=== PATIENT | male | born 1945 | race Caucasian/White ===

== ENCOUNTER 2017-04-10 18:13 | Inpatient (IN) | payer MEDICARE, OTHER ==
[~2017-04-10] VITALS: Ht 176.5 cm; Wt 71.7 kg
[2017-04-10 19:30] VITALS: BP 115/68
[2017-04-10] MEDS ORDERED: PAXIL20 MG PO (20:43)
[2017-04-10] MEDS ORDERED: ZOCOR40 MG PO (20:44)
[2017-04-10] MEDS ORDERED: ATIVAN1 MG PO (20:46)
[2017-04-10] MEDS ORDERED: GLUCOPHAGE500 MG PO (20:47)
[2017-04-10] MEDS ORDERED: BAYER CHEWABLE81 MG PO (20:48)
[2017-04-10] MEDS ORDERED: ATIVAN0.5 MG PO (20:49)
[2017-04-10] MEDS ORDERED: SINEMET 25-2501 EACH PO (20:51)
[2017-04-10] MEDS ORDERED: LUTEIN20 MG PO (20:52)
[2017-04-10] MEDS ORDERED: FLOMAX0.4 MG PO (20:52)
[2017-04-10] MEDS ORDERED: CETIRIZINE HCL5 M1 PO (20:54)
[2017-04-10] MEDS ORDERED: BENICAR HCT 40-1 TA1 PO (20:54)
[2017-04-10] MEDS ORDERED: OMEPRAZOLE40 MG PO (20:55)
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
[2017-04-11 03:51] VITALS: BP 115/68; BMI 23.0
[2017-04-11 07:08] LABS: BASOPHILS 0.3 % (0-2); EOSINOPHILS 2.2 % (0-7); HEMATOCRIT 39.9 % (42.0-54.0); HEMOGLOBIN 13.9 g/dL (13.5-17.5); IMMATURE GRANULOCYTES 0.2 % (0-5); LYMPHOCYTES 27.2 % (15-50); MCH 31.4 pg (26.0-34.0); MCHC 34.8 g/dL (31.0-37.0); MCV 90.1 fL (80.0-100.0); MEAN PLATELET VOLUME 8.6 fL (7.4-10.4); MONOCYTES 9.5 % (2-11); NEUTROPHILS 60.6 % (40-80); PLATELET COUNT 210 10x3/uL (130-400); RBC 4.43 10x6/uL (4.20-6.10); RDW 12.7 % (11.5-14.5); WBC 5.8 10x3/uL (4.8-10.8)
[2017-04-11 07:17] LABS: HEMOGLOBIN A1C 6.7 % (4.8-6.0)
[2017-04-11 07:38] LABS: ALBUMIN 4.2 g/dL (3.4-5.0); BILIRUBIN - TOTAL 1.27 mg/dL (0.2-1.3); CARBON DIOXIDE 27.4 mmol/L (21.0-32.0); CREATININE - SERUM 1.1 mg/dL (0.6-1.3); LDL-HDL RATIO 1.7 ratio (1.5-3.5); POTASSIUM - SERUM 3.4 mmol/L (3.5-5.1); PROTEIN - SERUM 7.5 g/dL (6.4-8.2); THYROID STIMULATING HORMONE 1.05 uIU/mL (0.36-3.74)
--- NOTE | 2017-04-11 12:48 | NUR ---
CONFUSED AND DISORIENTED.DIFFICULT TO REDIRECT.FREQUENTLY TRYING TO STAND UP,HAS DIFFICULTY WITH BALANCE.COMPLIANT WITH MEDS.WILL CONTINUE WITH PLAN OF CARE,MONITOR FOR SAFETY AND CHANGES.
--- NOTE | 2017-04-11 13:10 | NUR ---
PT WAS GIVEN 10MG OF GEODON FOR ANXIETY AND AGGITATION, CONSTANTLY GETTING UP OUT OF CHAIR AND TRYING TO WALK AROUND VERY UNSTEADY. WILL CONTINUE TO MONITOR.
[2017-04-11 16:04] VITALS: BP 151/69
--- NOTE | 2017-04-11 23:01 | NUR ---
RECEIVED IN HALLWAY. SITTING IN A RECLINING CHAIR. CONFUSED. ATTEMPTS TO STAND WITHOUT ASSIST. MARISSA ALARM SOUNDS. VISUAL HALLUCIANTIONS. CALM AND COOPERATIVE WITH CARE AND ASSESSMENTS. REDIRECT AND REORIENT NEEDED. RESTING IN RECLINER EYES CLOSED AT THIS TIME. CONTINUES TO HALLUCINATE. CONTINUE PLAN OF CARE
--- NOTE | 2017-04-12 00:29 | NUR ---
VERY CONFUSED. VISUAL AND AUDITORY HALLUCINATIONS. ATTEMPTS TO STAND WITHOUT ASSIST. GEODON 10 MG IM FOR INCREASING ANXIETY.
--- NOTE | 2017-04-12 03:06 | NUR ---
PATIENT IN HALLWAY LAYING IN RECLINING CHAIR. RESTLESS. HALLUCINATING. HAVING VISUAL AND AUDITORY HALLUCINATIONS. PRN ATIVAN 1 MG IM GIVEN FOR INCREASING ANXIETY.
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
--- NOTE | 2017-04-12 12:05 | NUR ---
CONFUSED AND DISORIENTED.KEEPS EYES CLOSED MOST OF THE TIME.COMPLIANT WITH MEDS.MEDS CRUSHED AND GIVEN IN APPLESAUCE.REQUIRES TOTAL CARE.WILL CONTINUE WITH PLAN OF CARE,MONITOR FOR CHANGES AND SAFETY.
[2017-04-12 19:09] VITALS: BP 126/81
[2017-04-12 20:30] VITALS: BP 95/53
--- NOTE | 2017-04-12 22:13 | NUR ---
RECEIVED IN HALLWAY. SITTING QUIETLY IN A RECLINING CHAIR. CALM AND COOPERATIVE WITH CARE AND ASSESSMENTS. NO SIGNS OF AGGRESSION. NO SIGNS OF HALLUCINATIONS. REDIRECT AND REORIENT NEEDED. CONTINUES TO SIT IN RECLINER IN HALLWAY. CONTINUE PLAN OF CARE
[2017-04-13 07:09] LABS: VITAMIN D 25 HYDROXY 35.3 ng/mL (30.0-100.0)
[2017-04-13 08:52] LABS: ALBUMIN 3.9 g/dL (3.4-5.0); ANION GAP 14.9 mmol/L (8-16); BILIRUBIN - TOTAL 1.2 mg/dL (0.2-1.3); CALCIUM 10.1 mg/dL (8.5-10.1); CREATININE - SERUM 1.8 mg/dL (0.6-1.3); POTASSIUM - SERUM 3.9 mmol/L (3.5-5.1); PROTEIN - SERUM 7.1 g/dL (6.4-8.2)
[2017-04-13 11:35] VITALS: BMI 23.0
[2017-04-13] MEDS ORDERED: GEODON20 MG PO (12:14)
[2017-04-13 14:43] VITALS: Ht 176.5 cm; Wt 71.7 kg
--- NOTE | 2017-04-13 15:00 | NUR ---
LYING IN RECLINER WITJ EYES CLOSED MOST OF DAY. CONFUSED AND DISORIENTED. KNOWS NAME ONLY. REFUSED AM MEDS, UNABLE TO AWAKEN FOR MEDS. CONTINUE PLAN OF CARE AND MONITOR FOR SAFETY AND CHANGES.
[2017-04-13 20:35] VITALS: BP 103/61
--- NOTE | 2017-04-13 21:08 | NUR ---
RECEIVED IN HALLWAY. SITTING QUIETLY IN A RECLINER. CALM AND COOPERATIVE WITH CARE AND ASSESSMENTS. NO SIGNS OF AGGRESSION. NO SIGNS OF HALLUCIANTIONS. REDIRECT AND REORIENT NEEDED. CONTINUES TO SIT QUIETLY IN CHAIR OUTSIDE OF NURSES STATION. CONTINUE PLAN OF CARE
--- NOTE | 2017-04-13 23:41 | NUR ---
IV START X 1 ATTEMPT LEFT FOREARM.
[2017-04-14 03:09] LABS: RAPID PLASMA REAGIN Non Reactive (Non Reactive)
[2017-04-14 04:13] LABS: FOLATE (FOLIC ACID) - SERUM 13.6 ng/mL (>3.0)
[2017-04-14 07:26] LABS: BASOPHILS 0.5 % (0-2); EOSINOPHILS 3.2 % (0-7); HEMATOCRIT 38.5 % (42.0-54.0); HEMOGLOBIN 13.2 g/dL (13.5-17.5); IMMATURE GRANULOCYTES 0.2 % (0-5); LYMPHOCYTES 34.1 % (15-50); MCH 31.4 pg (26.0-34.0); MCHC 34.3 g/dL (31.0-37.0); MCV 91.4 fL (80.0-100.0); MEAN PLATELET VOLUME 8.8 fL (7.4-10.4); MONOCYTES 9.2 % (2-11); NEUTROPHILS 52.8 % (40-80); PLATELET COUNT 210 10x3/uL (130-400); RBC 4.21 10x6/uL (4.20-6.10); RDW 13.4 % (11.5-14.5); WBC 5.9 10x3/uL (4.8-10.8)
[2017-04-14 07:39] LABS: ANION GAP 12.1 mmol/L (8-16); CARBON DIOXIDE 27.8 mmol/L (21.0-32.0); CREATININE - SERUM 1.4 mg/dL (0.6-1.3); POTASSIUM - SERUM 3.9 mmol/L (3.5-5.1)
--- NOTE | 2017-04-14 10:17 | PN ---
PATIENT:SHARRON OROSCO MEDICAL RECORD: [id number] LOCATION:[facility] ADMISSION DATE: 04/10/17 PROGRESS NOTE DATE OF SERVICE: 04/13/2017 SUBJECTIVE: No new complaint. OBJECTIVE: The patient has been somewhat restless, but not at all combative. He did sleep about 3 hours last night. At the request of the family, telephone conversation was held with one of the patient's treating physicians, Dr. Sha Hooks, a neurologist at [facility]. Dr. Hooks offered further information about the patient's diagnosis of Parkinson disease. PHYSICAL EXAMINATION: On exam, the patient's mood is euthymic. Affect is very constricted. Speech is minimal. Content of thought appears to be focused only on somatic concerns. Sensorium shows no improvement. ASSESSMENT: No change in diagnosis. PLAN: 1. Maintain current treatment plan. 2. Anticipate discharge soon if behavior remains under good control. TRANSINT:[id number] Voice Confirmation ID: [id number] DOCUMENT ID: [id number] VERENA WILKINSON III, MD at 1017 CC: [id number] DICTATION DATE: 04/13/17 1357 CONTROLLER REPAIRER AND TESTER: 04/13/17 1423 ADM IN [facility] [address] [place] [address]
[2017-04-14 10:32] VITALS: BP 129/61
[2017-04-14 20:22] VITALS: BP 140/67
[2017-04-15 06:50] LABS: BASOPHILS 0.4 % (0-2); EOSINOPHILS 2.4 % (0-7); HEMATOCRIT 35.8 % (42.0-54.0); HEMOGLOBIN 12.2 g/dL (13.5-17.5); IMMATURE GRANULOCYTES 0.2 % (0-5); LYMPHOCYTES 31.7 % (15-50); MCH 31.3 pg (26.0-34.0); MCHC 34.1 g/dL (31.0-37.0); MCV 91.8 fL (80.0-100.0); MEAN PLATELET VOLUME 8.5 fL (7.4-10.4); MONOCYTES 8.9 % (2-11); NEUTROPHILS 56.4 % (40-80); PLATELET COUNT 201 10x3/uL (130-400); RDW 13.4 % (11.5-14.5); WBC 5.4 10x3/uL (4.8-10.8)
[2017-04-15 07:08] LABS: ANION GAP 14.1 mmol/L (8-16); CALCIUM 9.5 mg/dL (8.5-10.1); CARBON DIOXIDE 23.3 mmol/L (21.0-32.0); CREATININE - SERUM 1.2 mg/dL (0.6-1.3); POTASSIUM - SERUM 3.4 mmol/L (3.5-5.1)
[2017-04-15 07:10] LABS: APPEARANCE CLEAR (CLEAR); BILIRUBIN NEGATIVE (NEGATIVE); COLOR YELLOW (YELLOW); GLUCOSE NEGATIVE (NEGATIVE); KETONE MODERATE mg/dL (NEGATIVE); NITRITE NEGATIVE (NEGATIVE); PROTEIN NEGATIVE (NEGATIVE); UROBILINOGEN NORMAL (NORMAL)
[2017-04-15 08:00] VITALS: BP 146/82
--- NOTE | 2017-04-15 08:39 | NUR ---
UPDATED PT'S SON AND SPOUSE ABOUT PT'S BEHAVIOR AND MEDICATION CHANGES. ALSO, UPDATE THEM ON LABS AND TX PLAN. VERBALIZED UNDERSTANDING.
--- NOTE | 2017-04-15 09:31 | PN ---
PATIENT:SHARRON OROSCO MEDICAL RECORD: [id number] LOCATION:[facility] ADMISSION DATE: 04/10/17 PROGRESS NOTE DATE OF SERVICE: 04/14/2017 SUBJECTIVE: No new complaint. OBJECTIVE: The patient is more alert. He is eating somewhat better. Staff has discussed his situation extensively with family. They will likely be musing hospice support after discharge. PHYSICAL EXAMINATION: On exam, mood is euthymic. Affect is constricted. Speech is very terse. Content of thought focuses only on somatic concerns. Sensorium shows no change. ASSESSMENT: No change in diagnosis. PLAN: 1. Maintain current medications. 2. Continue supportive therapy. TRANSINT:[id number] Voice Confirmation ID: [id number] DOCUMENT ID: [id number] VERENA WILKINSON III, MD at 0931 CC: [id number] DICTATION DATE: 04/14/17 1212 WALLPAPER INSPECTOR: 04/14/17 1231 ADM IN [id number] [place] [address]
--- NOTE | 2017-04-15 10:05 | NUR ---
SW SPOKE WITH PT'S SON, REZA, ABOUT DISCHARGE PLANS TO [facility] TODAY. SON VERBALIZED UNDERSTANDING OF PT'S DISCHARGE PLANS.
--- NOTE | 2017-04-15 10:10 | NUR ---
ADDED ENTRY. SW DISCUSSED PT WILL BE TRANSFERED VIA AMBULANCE. PT'S SON STATED UNDERSTANDING UNDERSTANDING OF DISCHARGE TRANSPORTATION.
--- NOTE | 2017-04-15 13:58 | NUR ---
Alert, calm, no aggression noted. Meds admin per orders and group therapy provided. No s/s adverse reaction to meds. IV fluids infusing, NS @ 100ml/hr, left forearm. No s/s infiltration noted. James well. Cont POC until discharge.
--- NOTE | 2017-04-15 14:10 | NUR ---
NALINI CALLED TO SET UP TRANSPORTATION AND DISCUSS DISCHARGE PLANS WITH [facility] AND THEY STATED THEY HAVE NOT ACCEPTED PT YET. NALINI STATED ALONSO AT [facility] OFFICE ALONG WITH FAMILY REPORTED SPEAKING WITH [facility] STAFF AND PT HAD BEEN ACCEPTED INTO CARE. SAMEERA STATED SHE WOULD LOOK INTO THE MATTER AND CALL SW BACK. SAMEERA CALLED BACK AND STATED MD HAS TO APPROVE [facility]. RN ROMEO STATED PT IS HOSPICE APPROPRIATE AND WILL BE ACCEPTED AND NALINI WILL GET CALL SOON MD APPROVES.
--- NOTE | 2017-04-15 14:37 | NUR ---
REPORT CALLED TO EILEEN AT ACCEPTING FACILITY. PAPERWORK WAS FAXED AND THEY CONFIRMED GETTING IT.
--- NOTE | 2017-04-15 15:10 | NUR ---
Pt. belongings returned to patient, pt assisted onto ambulance gurney for transport, no s/s distress, denies pain or needs, cont quite confused. Discharge documents sent with ambulance staff.
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
== END 2017-04-15 15:10 | disposition hospice, inpatient (51) | DRG 884 ==
LOC: D.PSYCH 18:13
PROVIDERS: Family Medicine; ADMIT Psychiatry & Neurology Psychiatry
DX: F01.51 Vascular dementia, unspecified severity, with behavioral disturbance (principal); F02.81 Dementia in other diseases classified elsewhere, unspecified severity, with behavioral disturbance; N17.9 Acute kidney failure, unspecified; I69.919 Unspecified symptoms and signs involving cognitive functions following unspecified cerebrovascular disease; G20 Parkinson's disease; I12.9 Hypertensive chronic kidney disease with stage 1 through stage 4 chronic kidney disease, or unspecified chronic kidney disease; N18.9 Chronic kidney disease, unspecified; K21.9 Gastro-esophageal reflux disease without esophagitis; E11.22 Type 2 diabetes mellitus with diabetic chronic kidney disease; N40.0 Benign prostatic hyperplasia without lower urinary tract symptoms; F32.9 Major depressive disorder, single episode, unspecified; E78.5 Hyperlipidemia, unspecified; Z74.09 Other reduced mobility; K80.20 Calculus of gallbladder without cholecystitis without obstruction